=== PATIENT | female | born 1990 | race Caucasian/White ===

== ENCOUNTER 2023-07-11 17:55 | Emergency (ER) | payer OTHER ==
[~2023-07-11] VITALS: Ht 180.3 cm; Wt 78.5 kg
[2023-07-11 18:02] VITALS: BP 119/84
[2023-07-11 18:33] LABS: BASOPHILS PERCENT AUTO 1 % (0-2); EOSINOPHILS PERCENT AUTO 8 % (0-6); Hematocrit 36.8 % (33.0-51.0); IMMATURE GRAN ABSOLUTE AUTO 0.02 K/mm3 (0.00-0.10); IMMATURE GRAN PERCENT AUTO 0 % (0-1); LYMPHOCYTES ABSOLUTE AUTO 2.36 K/mm3 (0.84-5.20); LYMPHOCYTES PERCENT AUTO 31 % (21-46); MONOCYTES ABSOLUTE AUTO 0.57 K/mm3 (0.16-1.47); MONOCYTES PERCENT AUTO 8 % (4-13); Mean Corpuscular HGB 30.5 pg (26.0-34.0); Mean Corpuscular HGB Conc 32.6 g/dL (31.5-36.5); Mean Corpuscular Volume 94 fL (80-100); Mean Platelet Volume 10.3 fL (9.1-12.4); NEUTROPHILS PERCENT AUTO 52 % (41-73); Platelet Count 234 K/mm3 (150-400); RDW Coefficient Variation 11.4 % (11.7-14.2); RDW Standard Deviation 38.8 fL (35.1-46.3); Red Blood Cell Count 3.93 M/mm3 (3.80-5.20); White Blood Cell Count 7.55 K/mm3 (4.00-11.30)
[2023-07-11 19:17] LABS: Albumin, Blood 3.9 g/dL (3.4-5.0); Albumin/Globulin Ratio 1.1 (0.8-1.8); Bilirubin, Total 0.2 mg/dL (0.1-1.0); Bun/Creatinine Ratio 21.8 (12.0-20.0); Calcium, Blood 9.8 mg/dL (8.5-10.1); Creatinine, Blood 0.64 mg/dL (0.40-1.00); Globulin, Blood 3.5 g/dL (2.2-4.0); Potassium, Blood 3.5 mmol/L (3.5-5.5); Total Protein, Blood 7.4 g/dL (6.4-8.2)
[2023-07-11] MEDS ORDERED: Ketorolac Tromethamine 15mg Vial IV ONE (20:20)
== END 2023-07-11 20:40 | disposition home or self-care (01) ==
LOC: ER 17:55
PROVIDERS: Emergency Medicine
DX: O03.9 Complete or unspecified spontaneous abortion without complication (principal); Z88.8 Allergy status to other drugs, medicaments and biological substances
CPT/HCPCS: 76801; 76817; 80053; 84702; 85025; 86900; 86901; 96374; 99284-25; J1885

== ENCOUNTER → 2024-06-11 | Outpatient (CLI) | payer OTHER ==
[2024-06-12 14:00] LABS: Bacterial Vaginosis PCR Negative (NEGATIVE); Candida glabrata-krusei, PCR NOT DETECTED (NOT DETECT)
[2024-06-12 14:02] LABS: Candida Group, PCR DETECTED (NOT DETECT)
== END | disposition home or self-care (01) ==
LOC: LAB 15:52 → LAB SHORT 15:52
PROVIDERS: Obstetrics & Gynecology
DX: N76.0 Acute vaginitis (principal)
CPT/HCPCS: 81515

== ENCOUNTER → 2024-06-27 | Outpatient (CLI) | payer OTHER | END | disposition home or self-care (01) | LOC: LAB SHORT 12:53 → LAB 12:53 | DX: O09.519 Supervision of elderly primigravida, unspecified trimester (principal); O09.90 Supervision of high risk pregnancy, unspecified, unspecified trimester | CPT/HCPCS: 87081; 87150 ==

== ENCOUNTER → 2024-07-18 | Outpatient (CLI) | payer OTHER ==
[2024-07-18 15:34] LABS: Bacterial Vaginosis PCR Negative (NEGATIVE); Candida glabrata-krusei, PCR NOT DETECTED (NOT DETECT)
[2024-07-18 15:35] LABS: Candida Group, PCR DETECTED (NOT DETECT)
== END ==
LOC: LAB 12:53 → LAB SHORT 12:53
PROVIDERS: Obstetrics & Gynecology
DX: N76.0 Acute vaginitis (principal)
CPT/HCPCS: 81515

== ENCOUNTER 2024-08-04 09:58 | Inpatient (IN) | payer OTHER ==
[2024-08-04] VITALS (33 sets, daily range): BP systolic 85–154; BP diastolic 53–90
[~2024-08-04] VITALS: Ht 180.3 cm; Wt 95.9 kg
[2024-08-04] MEDS ORDERED: OXYTOCIN/RINGER'S LACTATE 500 ML IV PRN (12:10)
[2024-08-04] MEDS ORDERED: Carboprost Tromethamine 250 MCG/ML 1ML Amp IM PRN (12:10)
[2024-08-04] MEDS ORDERED: Ondansetron HCl 2 MG / ML 2ML Vial IV PRN ×2 (12:10→20:55)
[2024-08-04] MEDS ORDERED: Misoprostol 200 MCG Tab PR PRN (12:10)
[2024-08-04] MEDS ORDERED: Calcium Carbonate 500 MG Tab Chew PO PRN (12:10)
[2024-08-04] MEDS ORDERED: Misoprostol 200 MCG Tab BC PRN (12:10)
[2024-08-04] MEDS ORDERED: Methylergonovine Maleate 0.2MG / ML 1ML Amp IM PRN (12:10)
[2024-08-04] MEDS ORDERED: Oxytocin 10 Unit / ML Vial IM PRN (12:10)
[2024-08-04] MEDS ORDERED: Lactated Ringer's 1,000 ML IV PRN (12:10)
[2024-08-04] MEDS ORDERED: Acetaminophen 500 MG Tab PO PRN (12:15)
[2024-08-04 12:28] LABS: BASOPHILS ABSOLUTE AUTO 0.06 K/mm3 (0.00-0.23); BASOPHILS PERCENT AUTO 1 % (0-2); EOSINOPHILS ABSOLUTE AUTO 0.13 K/mm3 (0.00-0.68); EOSINOPHILS PERCENT AUTO 1 % (0-6); Hematocrit 37.6 % (33.0-51.0); Hemoglobin 12.6 g/dL (11.5-16.0); IMMATURE GRAN ABSOLUTE AUTO 0.07 K/mm3 (0.00-0.10); IMMATURE GRAN PERCENT AUTO 1 % (0-1); LYMPHOCYTES ABSOLUTE AUTO 1.45 K/mm3 (0.84-5.20); LYMPHOCYTES PERCENT AUTO 14 % (21-46); MONOCYTES ABSOLUTE AUTO 0.67 K/mm3 (0.16-1.47); MONOCYTES PERCENT AUTO 6 % (4-13); Mean Corpuscular HGB 31.4 pg (26.0-34.0); Mean Corpuscular HGB Conc 33.5 g/dL (31.5-36.5); Mean Corpuscular Volume 94 fL (80-100); Mean Platelet Volume 10.1 fL (9.1-12.4); NEUTROPHILS ABSOLUTE AUTO 8.07 K/mm3 (1.96-9.15); NEUTROPHILS PERCENT AUTO 77 % (41-73); Platelet Count 207 K/mm3 (150-400); RDW Coefficient Variation 13.8 % (11.7-14.2); RDW Standard Deviation 47.2 fL (35.1-46.3); Red Blood Cell Count 4.01 M/mm3 (3.80-5.20); White Blood Cell Count 10.45 K/mm3 (4.00-11.30)
[2024-08-04] MEDS ORDERED: Tranexamic Acid 100 ML IV PRN (12:30)
[2024-08-04] MEDS ORDERED: ePHEDrine Sulfate 50 MG/ML 1ML Injection XX PRN (19:45)
[2024-08-04] MEDS ORDERED: FentaNYL 2mcg/ml-Bup 0.1% Epd 250 ML EPI PRN (19:45)
[2024-08-04] MEDS ORDERED: Lactated Ringer's 1,000 ML IV SCH ×3 (19:50→22:30)
[2024-08-04] MEDS ORDERED: FentaNYL Citrate 50 MCG/ML 2 ML Injection IV PRN (19:50)
[2024-08-04] MEDS ORDERED: Naloxone HCl 0.4MG / ML 1ML Vial IV PRN (20:50)
[2024-08-04] MEDS ORDERED: ePHEDrine Sulfate 50 MG/ML 1ML Injection IV PRN (20:55)
[2024-08-04] MEDS ORDERED: Metoclopramide HCl 5MG / ML 2ML Vial IV PRN (20:55)
[2024-08-04] MEDS ORDERED: DiphenhydrAMINE HCl 50 MG/ML 1ML Vial IV PRN (20:55)
[2024-08-04] MEDS ORDERED: OXYTOCIN/RINGER'S LACTATE 500 ML IV SCH (22:30)
--- NOTE | 2024-08-04 22:56 | NUR ---
EFW [address] HUERTA
[2024-08-04] MEDS ORDERED: Insulin Human Lispro 100 Units/ML 3ML Syringe SC PRN (23:35)
[2024-08-05] VITALS (39 sets, daily range): BP systolic 82–145; BP diastolic 45–84
[2024-08-05] MEDS ORDERED: CeFAZolin Sodium 2,000 MG in NS 100 ML IV SCH (04:25)
[2024-08-05] MEDS ORDERED: Lactated Ringer's 1,000 ML IV SCH (04:25)
[2024-08-05] MEDS ORDERED: Azithromycin 500 MG in NS 250 ML IV SCH (04:25)
[2024-08-05] MEDS ORDERED: Citric Acid/Sodium Citrate 30 ML BTL PO ONE (04:30)
[2024-08-05] MEDS ORDERED: Metoclopramide HCl 5MG / ML 2ML Vial IV ONE (04:30)
[2024-08-05] MEDS ORDERED: Clindamycin 600mg in D5W 50 ML IV SCH (04:45)
[2024-08-05] MEDS ORDERED: GENTAMICIN SULFATE IV SCH (04:45)
[2024-08-05] MEDS ORDERED: NS IV SCH (04:45)
[2024-08-05] MEDS ORDERED: [UNRECOGNIZED DRUG - OTHER] UD SCH (05:10)
[2024-08-05] MEDS ORDERED: Oxytocin 10 Unit / ML Vial ONE (05:38)
[2024-08-05] MEDS ORDERED: Bupivacaine 0.75%/Dext 8.25% 2 ML Amp IT ONE (05:38)
[2024-08-05 05:55] LABS: PO2 Cord - Arterial 15.8 mmHg (16-20); pH Cord - Arterial 7.21 (7.28-7.35)
[2024-08-05 05:57] LABS: PCO2 Cord - Venous 51.9 mmHg (40-50); PO2 Cord - Venous 18.1 mmHg (28-32)
--- NOTE | 2024-08-05 05:59 | NUR ---
08/05/24 0559 Kamryn Hdez PT ENTERED OR WITH PEREZ CATHETER
[2024-08-05] MEDS ORDERED: Dexamethasone Sod Phos 10 MG/ML 1ML VIAL ONE (06:04)
[2024-08-05] MEDS ORDERED: Ondansetron HCl 2 MG / ML 2ML Vial ONE (06:04)
[2024-08-05] MEDS ORDERED: Diphth,Pertuss(Acell),Tet Vac 0.5 ML VIAL IM ONE (06:25)
[2024-08-05] MEDS ORDERED: Promethazine HCl 25 MG Tab PO PRN (06:25)
[2024-08-05] MEDS ORDERED: Polyethylene Glycol 3350 17 gm PO PRN ×2 (06:25→15:10)
[2024-08-05] MEDS ORDERED: Acetaminophen 500 MG Tab PO PRN (06:25)
[2024-08-05] MEDS ORDERED: OxyCODONE HCL 5 MG TAB PO PRN ×2 (06:30→06:35)
[2024-08-05] MEDS ORDERED: Magnesium Hydroxide Conc 10 ML UDC PO PRN (06:30)
[2024-08-05] MEDS ORDERED: OXYTOCIN/RINGER'S LACTATE 500 ML IV SCH (06:30)
[2024-08-05] MEDS ORDERED: Ondansetron HCl 2 MG / ML 2ML Vial IV PRN ×2 (06:30→06:35)
[2024-08-05] MEDS ORDERED: Measles/Mumps/Rubella Vaccine 0.5 ML Vial SC ONE (06:30)
[2024-08-05] MEDS ORDERED: Lanolin Cream TOP PRN (06:30)
[2024-08-05] MEDS ORDERED: Simethicone 80 MG Chew PO PRN (06:30)
[2024-08-05] MEDS ORDERED: FentaNYL Citrate 50 MCG/ML 2 ML Injection IV PRN ×2 (06:35)
[2024-08-05] MEDS ORDERED: Morphine Sulfate 4 MG/1 ML Injection IV PRN (06:40)
[2024-08-05] MEDS ORDERED: HYDROmorphone HCl 0.5 MG/0.5 ML SYR IV PRN (06:40)
[2024-08-05] MEDS ORDERED: Metoclopramide HCl 5MG / ML 2ML Vial IV PRN (06:40)
[2024-08-05] MEDS ORDERED: Ketorolac Tromethamine 30mg Vial IV SCH (07:00)
[2024-08-05] MEDS ORDERED: Meperidine HCl 50 MG/ML 1ML Injection IV PRN (07:10)
[2024-08-05] MEDS ORDERED: Prenatal Vit/FE Fumarate/FA 1 Tab PO SCH (09:00)
--- NOTE | 2024-08-05 09:25 | NUR ---
LOW BP PT LEFT SIDE LYING WITH BP CUFF ON UPPER ARM. PT REPOSITIONED AND REASSESSED. PT ASYMPTOMATIC AT THIS TIME.
--- NOTE | 2024-08-05 10:00 | NUR ---
ABDOMINAL BINDER PLACED
[2024-08-05] MEDS ORDERED: Psyllium 1 EA Pack PO PRN (15:10)
--- NOTE | 2024-08-05 18:57 | NUR ---
R/T BED. RODRI CARE DONE. VALENTINA TRANSFERING WELL.
[2024-08-05] MEDS ORDERED: Docusate Sodium 100 MG Cap PO SCH (21:00)
[2024-08-06] MEDS ORDERED: Ibuprofen 400 MG Tab PO SCH
[2024-08-06] MEDS ORDERED: Ketorolac Tromethamine 30mg Vial IV ONE (00:10)
[2024-08-06 03:05] VITALS: BP 101/58
[2024-08-06 07:00] LABS: BASOPHILS ABSOLUTE AUTO 0.06 K/mm3 (0.00-0.23); BASOPHILS PERCENT AUTO 0 % (0-2); EOSINOPHILS ABSOLUTE AUTO 0.14 K/mm3 (0.00-0.68); EOSINOPHILS PERCENT AUTO 1 % (0-6); Hematocrit 29.6 % (33.0-51.0); IMMATURE GRAN ABSOLUTE AUTO 0.16 K/mm3 (0.00-0.10); IMMATURE GRAN PERCENT AUTO 1 % (0-1); LYMPHOCYTES ABSOLUTE AUTO 2.07 K/mm3 (0.84-5.20); LYMPHOCYTES PERCENT AUTO 12 % (21-46); MONOCYTES PERCENT AUTO 7 % (4-13); Mean Corpuscular HGB 32.2 pg (26.0-34.0); Mean Corpuscular HGB Conc 33.8 g/dL (31.5-36.5); Mean Corpuscular Volume 95 fL (80-100); Mean Platelet Volume 10.4 fL (9.1-12.4); NEUTROPHILS ABSOLUTE AUTO 14.04 K/mm3 (1.96-9.15); NEUTROPHILS PERCENT AUTO 79 % (41-73); Platelet Count 171 K/mm3 (150-400); RDW Coefficient Variation 14.4 % (11.7-14.2); RDW Standard Deviation 49.6 fL (35.1-46.3); Red Blood Cell Count 3.11 M/mm3 (3.80-5.20); White Blood Cell Count 17.77 K/mm3 (4.00-11.30)
[2024-08-06 07:18] VITALS: BP 87/52
[2024-08-06 07:27] VITALS: BP 90/52
--- NOTE | 2024-08-06 08:16 | NUR ---
DR. SWAIN HERE TO SEE PT. PLAN D/C TOMORROW. SCRIPTS TO BE SENT TO PHARMACY TODAY.
[2024-08-06 11:13] VITALS: BP 108/64
--- NOTE | 2024-08-06 11:16 | NUR ---
1000: PT UP TO SHOWER. [facility] INDEPENDANTLY. LINENS CHANGED. FAMILY ASSISTING PT WELL.
--- NOTE | 2024-08-06 11:17 | NUR ---
1115: RX GIVEN FOR PAIN PER PT REQUEST. PT IN BED RESTING FROM BEING UP IN THE ROOM. PT C/O SOME GAS PAIN. ENCOURAGED PT TO AMBULATE IN THE HALLS.
--- NOTE | 2024-08-06 13:59 | NUR ---
PT REQUESTS PAIN RX AND PLANS TO AMBULATE IN THE HALLS. VALENTINA WELL
[2024-08-06 15:47] VITALS: BP 106/59
--- NOTE | 2024-08-06 18:11 | NUR ---
UP IN ROOM AB FABRICIO AND VALENTINA SELF AND NB CARE WELL. [facility]INA DISCOMFORT AT THIS TIME. VISITING WITH FAMILY. UP IN CHAIR AND BF NB.
[2024-08-06 19:17] VITALS: BP 110/66
[2024-08-07 00:25] VITALS: BP 103/62
[2024-08-07 04:23] VITALS: BP 106/66
[2024-08-07 08:34] VITALS: BP 113/74
== END 2024-08-07 11:05 | disposition home or self-care (01) | DRG 788 ==
LOC: OBS 09:58 → BC 09:58 → OBS 11:58 → BC 11:59
PROVIDERS: Obstetrics & Gynecology; ADMIT Family Medicine
PROC: 4A1HXCZ Monitoring of Products of Conception, Cardiac Rate, External Approach (ICD-10-PCS; 2024-08-04)
PROC: 10907ZC Drainage of Amniotic Fluid, Therapeutic from Products of Conception, Via Natural or Artificial Opening (ICD-10-PCS; 2024-08-04)
PROC: 10D00Z1 Extraction of Products of Conception, Low, Open Approach (ICD-10-PCS; principal; 2024-08-05 05:15)
DX: O48.0 Post-term pregnancy (principal); Z3A.40 40 weeks gestation of pregnancy; Z37.0 Single live birth; O24.420 Gestational diabetes mellitus in childbirth, diet controlled; F41.8 Other specified anxiety disorders; O99.344 Other mental disorders complicating childbirth; O99.02 Anemia complicating childbirth; D50.9 Iron deficiency anemia, unspecified; O76 Abnormality in fetal heart rate and rhythm complicating labor and delivery; Z14.8 Genetic carrier of other disease; Z88.0 Allergy status to penicillin; Z88.8 Allergy status to other drugs, medicaments and biological substances
CPT/HCPCS: 36415; 51702; 59025; 82803; 82947; 85025; 86850; 86900; 86901; 99214; A9270; J1100; J1580; J1885; J2405; J2590; J2765; J7120